=== PATIENT | female | born 1995 | race Caucasian/White ===

== ENCOUNTER 2018-03-31 16:48 | Emergency (ER) | payer OTHER ==
[2018-03-31 16:58] VITALS: BP 137/85
[2018-03-31] MEDS ORDERED: LIDOCAINE-EPINEPH-TETRACAINE 3 ML SYRINGE TOP STA (17:38)
[2018-03-31] MEDS ORDERED: LIDOCAINE 2%-EPI 1:100000 20 ML MDV SUBQ STA (17:38)
--- NOTE | 2018-03-31 17:44 | ED Physician Documentation ---
History of Present Illness - Stated complaint Stated Complaint: L LEG WOUND - Chief complaint Chief Complaint: Wound - Additonal information Additional information: 22 f denies preg to ED with abscess back L thigh Review of Systems : denies: Now EGA Skin: reports: Other (abscess) PD PAST MEDICAL HISTORY - Past Medical History Past Medical History: No - Past Surgical History Past Surgical History: No - Present Medications Home Medications: Ambulatory Orders Medication Instructions Recorded Confirmed Cephalexin [Keflex] 500 mg PO Q6H #28 capsule 03/31/18 - Allergies Allergies/Adverse Reactions: Allergies Allergy/AdvReac Type Severity Reaction Status Date / Time No Known Drug Allergies Allergy Verified 03/31/18 16:58 - Social History Does the pt smoke?: Yes Smoking Status: Current every day smoker Does the pt drink ETOH?: No Does the pt have substance abuse?: No - Immunizations Immunizations are current?: Yes - POLST Patient has POLST: No PD ED PE NORMAL - Vitals Vital signs reviewed: Yes - Extremities Extremities: Other (3 cm diameter abscess back L thigh) Results - Vitals Vitals: Vital Signs - 24 hr 03/31/18 16:54 Temperature 36.4 C L Heart Rate 55 L Respiratory 16 Rate Blood Pressure 137/85 H O2 Saturation 100 Oxygen O2 Source Room air Procedures - Abscess I&D (location) L thigh Preparation: Betadine, Lidocaine 2 %, With epi, LET Incision: Incised with scalpel, Purulent drainage (small), Packed, Culture obtained Other: Pt tolerated well, Dressing applied, Antibiotic prescribed PD MEDICAL DECISION MAKING - ED course ED course: prior abscess did not clear with just I and D and this one has sig induarration but scant dc with I and D so will rx keflex - no hx MRSA - Sepsis Event Vital Signs: Vital Signs - 24 hr 03/31/18 16:54 Temperature 36.4 C L Heart Rate 55 L Respiratory 16 Rate Blood Pressure 137/85 H O2 Saturation 100 Oxygen O2 Source Room air Departure - Departure Disposition: 01 Home, Self Care Clinical Impression: Abscess Condition: Good Instructions: ED Abscess IandD Follow-Up: IRAM Hoyos [Provider Group] Prescriptions: Cephalexin [Keflex] 500 mg PO Q6H #28 capsule Comments: Pull out the medicated tape in 2 days
[2018-03-31] MEDS ORDERED: LIDOCAINE-EPINEPH-TETRACAINE 3 ML SYRINGE TOP ONE (17:48)
[2018-03-31] MEDS ORDERED: LIDOCAINE 2%-EPI 1:100000 20 ML MDV ONE (17:49)
== END 2018-03-31 18:36 | disposition home or self-care (01) ==
LOC: ED 16:48
DX: L02.416 Cutaneous abscess of left lower limb (principal); F17.200 Nicotine dependence, unspecified, uncomplicated
CPT/HCPCS: 10060; 87070; 87077; 87181; 87205; 99281; 99283

== ENCOUNTER 2018-05-20 22:20 | Emergency (ER) | payer OTHER ==
--- NOTE | 2018-05-20 23:17 | XRAY Report ---
Procedure Date: 05/20/2018 Accession Number: [id number] / [id number] Procedure: XR - Chest 2 View X-Ray CPT Code: 13604 FULL RESULT: EXAM: CHEST RADIOGRAPHY EXAM DATE: 05/20/2018 11:03 PM. CLINICAL HISTORY: Chest pain. COMPARISON: None. TECHNIQUE: 2 views. FINDINGS: Lungs/Pleura: No alveolar consolidation or pleural effusion seen. No pneumothorax. Mediastinum: Heart and mediastinal contours are unremarkable. Other: None. IMPRESSION: 1. No acute abnormality seen in the chest. RADIA
[2018-05-21 00:41] VITALS: BP 127/80
--- NOTE | 2018-05-21 00:45 | ED Physician Documentation ---
PD HPI CHEST PAIN - Stated complaint Stated Complaint: CP/NAUSEA - Chief complaint Chief Complaint: Cardiac - History obtained from History obtained from: Patient - History of Present Illness Timing - onset: How many days ago (3) Timing - onset during: Light activity Timing - duration: Days (3) Timing - details: Gradual onset (not aware of particular injury. Does do heavy lifting at work.), Intermittant Quality: Aching, Sharp, Pain Location: Left chest Radiation: Back. No: Jaw, Neck Improved by: Rest Worsened by: Inspiration, Movement, Palpation, Other (laughing) Associated symptoms: Nausea. No: Shortness of air, Feeling faint / dizzy, General Weakness, Palpitations Similar symptoms before: Has not had sx before Recently seen: Not recently seen Review of Systems Constitutional: denies: Fever, Chills Nose: denies: Rhinorrhea / runny nose, Congestion Throat: denies: Sore throat Cardiac: reports: Chest pain / pressure. denies: Palpitations, Pedal edema, Calf pain Respiratory: denies: Dyspnea, Cough, Wheezing GI: reports: Nausea. denies: Abdominal Pain, Vomiting : denies: Dysuria, Frequency Skin: denies: Rash, Lesions Musculoskeletal: denies: Back pain PD PAST MEDICAL HISTORY - Past Medical History Past Medical History: No Cardiovascular: None Respiratory: None Neuro: None Endocrine/Autoimmune: HyPOthyroidism GI: None LEARNING DESIGNER: Ovarian cysts : None HEENT: None Psych: None Musculoskeletal: None Derm: None - Past Surgical History Past Surgical History: Yes - Present Medications Home Medications: Ambulatory Orders Medication Instructions Recorded Confirmed Cephalexin [Keflex] 500 mg PO Q6H #28 capsule 03/31/18 Dexamethasone [Decadron] 4 mg PO DAILY #5 tablet 05/21/18 HYDROcod/ACETAM 5/325 [[place] 5/325] 1 tab PO Q6H PRN #15 tablet 05/21/18 Ibuprofen [Motrin] 600 mg PO TID #30 tab 05/21/18 - Allergies Allergies/Adverse Reactions: Allergies Allergy/AdvReac Type Severity Reaction Status Date / Time No Known Drug Allergies Allergy Verified 05/20/18 22:24 - Social History Does the pt smoke?: Yes Smoking Status: Current every day smoker Does the pt drink ETOH?: Yes ETOH Use: Liquor Does the pt have substance abuse?: No - Family History Family history: denies: CAD, Sudden - Immunizations Immunizations are current?: Yes - POLST Patient has POLST: No PD ED PE NORMAL - Vitals Vital signs reviewed: Yes - General General: Alert and oriented X 3, No acute distress, Well developed/nourished - HEENT HEENT: Pharynx benign - Neck Neck: Supple, no meningeal sign, No adenopathy - Cardiac Cardiac: RRR, No murmur - Respiratory Respiratory: No respiratory distress, Clear bilaterally, Other (left chestwall tenderness to palpation at costochondral area left. ) - Abdomen Abdomen: Soft, Non tender - Derm Derm: Normal color, Warm and dry - Extremities Extremities: No deformity, No tenderness to palpate, No edema, No calf tenderness / cord - Neuro Neuro: Alert and oriented X 3, No motor deficit, Normal speech Results - Vitals Vitals: Oxygen O2 Source Room air - EKG (time done) 22:31 Rate: Rate (enter#) (76) Rhythm: NSR [place]: Normal Intervals: Normal PA QRS: Normal Ischemia: Normal ST segments. No: ST elevation c/w ischemia, ST depression Compare to prior EKG: Old EKG unavailable - Rads (name of study) chest xray Radiology: Prelim report reviewed, EMP read contemporaneously (no acute process) PD MEDICAL DECISION MAKING - ED course Complexity details: considered differential, d/w patient - Sepsis Event Vital Signs: Oxygen O2 Source Room air Departure - Departure Disposition: 01 Home, Self Care Clinical Impression: Acute chest wall pain Condition: Stable Record reviewed to determine appropriate education?: Yes Instructions: ED Strain Chest Wall Follow-Up: IRAM Hoyos [Provider Group] Prescriptions: Dexamethasone [Decadron] 4 mg PO DAILY #5 tablet HYDROcod/ACETAM 5/325 [[place] 5/325] 1 tab PO Q6H PRN #15 tablet PRN Reason: Pain Ibuprofen [Motrin] 600 mg PO TID #30 tab Comments: Your vital signs, oxygenation level, chest x-ray and EKG appear normal. Given the tenderness in the area and worsening with cough, breathing, movement, it sounds musculoskeletal in etiology. We will treated with ibuprofen 3 times a day as well as Decadron steroid anti-inflammatory daily as directed. Add Tylenol or hydrocodone if needed for pain. Minimal lifting and activity over the next couple of days. Recheck with your primary care or the clinic in a couple of days to see how much improved you are doing. Recheck if other symptoms develop meanwhile that would suggest other causes. Forms: Activity restrictions Discharge Date/Time: 05/21/18 01:13
[2018-05-21] MEDS ORDERED: HYDROcod/ACETAM 5/325 MG TABLET PO STA (01:00)
[2018-05-21] MEDS ORDERED: IBUPROFEN 600 MG TABLET PO STA (01:00)
[2018-05-21] MEDS ORDERED: DEXAMETHASONE 10 MG/ML VIAL PO STA (01:00)
== END 2018-05-21 01:13 | disposition home or self-care (01) ==
LOC: ED 22:20
DX: R07.89 Other chest pain (principal); E03.9 Hypothyroidism, unspecified; F17.200 Nicotine dependence, unspecified, uncomplicated
CPT/HCPCS: 71046; 93005; 99283; 99284; A9270

== ENCOUNTER 2019-11-26 09:39 | Emergency (ER) | payer OTHER ==
[2019-11-26] MEDS ORDERED: CHERRY SYRUP 10 ML UDC PO ONE (11:22)
[2019-11-26] MEDS ORDERED: DEXAMETHASONE 10 MG/ML VIAL PO STA (11:22)
[2019-11-26] MEDS ORDERED: KETOROLAC 60 MG/2 ML VIAL IM STA (11:22)
--- NOTE | 2019-11-26 11:25 | ED Physician Documentation ---
PD HPI UPPER EXT INJURY - Stated complaint Stated Complaint: RT SHOULDER PX - Chief complaint Chief Complaint: Ext Problem - History obtained from History obtained from: Patient - History of Present Illness Location: Right, Shoulder Type of injury: Other (loading weapons yesterday) Where injury occurred: Work Timing - onset: Yesterday Timing - duration: Hours Timing - details: Abrupt onset, Still present Improved by: Rest, Immobilization Worsened by: Moving, Palpating Associated symptoms: Swelling. 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 Today she was putting her hair up when she heard a pop in her back and has since had pain along the scapula with any movement of her arm or with twisting her neck. She has had a similar pain to the anterior chest wall with a different weapon loading last year. Review of Systems Constitutional: denies: Fever Eyes: denies: Decreased vision Ears: denies: Ear pain Nose: denies: Congestion Throat: denies: Sore throat Cardiac: denies: Chest pain / pressure, Palpitations Respiratory: denies: Dyspnea, Cough GI: denies: Abdominal Pain, Nausea, Vomiting : denies: Dysuria PD PAST MEDICAL HISTORY - Past Medical History Cardiovascular: None Respiratory: None Neuro: None Endocrine/Autoimmune: HyPOthyroidism GI: None DEMOLITION SPECIALIST: Ovarian cysts : None HEENT: None Psych: None Musculoskeletal: None Derm: None - Past Surgical History Past Surgical History: Yes - Present Medications Home Medications: Ambulatory Orders Medication Instructions Recorded Confirmed Cephalexin [Keflex] 500 mg PO Q6H #28 capsule 03/31/18 HYDROcod/ACETAM 5/325 [[place] 5/325] 1 tab PO Q6H PRN #15 tablet 05/21/18 Ibuprofen [Motrin] 600 mg PO TID #30 tab 05/21/18 dexAMETHasone [Decadron] 4 mg PO DAILY #5 tablet 05/21/18 Cyclobenzaprine [Flexeril] 10 mg PO TID PRN #20 tablet 11/26/19 Hydrocodone/Acetaminophen 1 - 2 each PO Q6H PRN #14 tablet 11/26/19 [Hydrocodon-Acetaminophen 5-325] - Allergies Allergies/Adverse Reactions: Allergies Allergy/AdvReac Type Severity Reaction Status Date / Time No Known Drug Allergies Allergy Verified 11/26/19 09:58 - Social History Does the pt smoke?: Yes Smoking Status: Current every day smoker Does the pt drink ETOH?: Yes Does the pt have substance abuse?: No - Immunizations Immunizations are current?: Yes - POLST Patient has POLST: No PD ED PE NORMAL - Vitals Vital signs reviewed: Yes (hypertensive mild ) - General General: Alert and oriented X 3, No acute distress, Well developed/nourished - HEENT HEENT: Atraumatic, PERRL, EOMI - Neck Neck: Supple, no meningeal sign, No bony TTP - Respiratory Respiratory: No respiratory distress - Back Back: No CVA TTP, No spinal TTP, Other (There is mild tenderness along the rhomboid muscles of the right scapula. There is pain with extension of the arm or with turning the neck.) - Derm Derm: Normal color, Warm and dry, No rash - Extremities Extremities: No deformity, No tenderness to palpate, No edema, No calf tenderness / cord - Neuro Neuro: Alert and oriented X 3, consultant intern 2-12 intact, No motor deficit, No sensory deficit, Normal speech Eye Opening: Spontaneous Motor: Obeys Commands Verbal: Oriented GCS Score: 15 - Psych Psych: Normal mood, Normal affect Results - Vitals Vitals: Vital Signs - 24 hr 11/26/19 11/26/19 09:54 11:54 Temperature 36.7 C Heart Rate 74 64 Respiratory 17 18 Rate Blood Pressure 134/78 H 136/76 H O2 Saturation 100 100 Oxygen O2 Source Room air PD MEDICAL DECISION MAKING - ED course Complexity details: considered differential, d/w patient ED course: 23-year-old female with rhomboid muscle spasm is administered dexamethasone 10 mg orally and Toradol 60 mg IM we will place her a short course of pain medication muscle relaxant. Departure - Departure Disposition: 01 Home, Self Care Clinical Impression: Pain of rhomboid muscle Condition: Stable Instructions: ED Myofascial Pain Syndrome Follow-Up: LILLIAN MAYORGA MD [Primary Care Provider] - Prescriptions: Cyclobenzaprine [Flexeril] 10 mg PO TID PRN #20 tablet PRN Reason: Spasms Hydrocodone/Acetaminophen [Hydrocodon-Acetaminophen 5-325] 1 - 2 each PO Q6H PRN #14 tablet PRN Reason: pain Discharge Date/Time: 11/26/19 11:55
[2019-11-26 11:55] VITALS: BP 136/76
== END 2019-11-26 11:55 | disposition home or self-care (01) ==
LOC: ED 09:39
DX: S29.092A Other injury of muscle and tendon of back wall of thorax, initial encounter (principal); X50.0XXA Overexertion from strenuous movement or load, initial encounter; Y93.89 Activity, other specified; Y92.139 Unspecified place military base as the place of occurrence of the external cause; Y99.1 Military activity; M62.830 Muscle spasm of back; F17.200 Nicotine dependence, unspecified, uncomplicated
CPT/HCPCS: 96372; 99283; 99284; A9270